=== PATIENT | male | born 1975 | race Caucasian/White ===

== ENCOUNTER 2019-04-25 08:19 | Emergency (ER) | payer BC ==
--- NOTE | 2019-04-25 08:30 | UC ---
Eye Complaint HPI - HPI Summary HPI Summary: 43-year-old male who awakened this morning with right eye redness and pus drainage with some crustiness around his eyes. He states he also has a scratchy throat today. - History of Current Complaint Stated Complaint: EYE IRRITATION Time Seen by Provider: 04/25/19 08:25 Hx Obtained From: Patient Onset/Duration: Gradual Onset Timing: Constant Severity Initially: Mild Severity Currently: Mild Location of Injury: Other - No injury Aggravating Factor(s): Nothing Alleviating Factor(s): Nothing Associated Signs And Symptoms: Positive: Drainage (Purulent) - Patient had some pus drainage this morning with some crustiness around his right eye. - Allergies/Home Medications Allergies/Adverse Reactions: Allergies Allergy/AdvReac Type Severity Reaction Status Date / Time No Known Allergies Allergy Verified 04/25/19 08:28 PMH/Surg Hx/FS Hx/Imm Hx Previously Healthy: Yes - Surgical History Surgical History: None - Family History Known Family History: Positive: None - Social History Alcohol Use: Occasionally Substance Use Type: None Smoking Status (MU): Never Smoked Tobacco Have You Smoked in the Last Year: No Review of Systems All Other Systems Reviewed And Are Negative: Yes Eyes: Positive: Drainage, Eye Redness - Right eye with pus drainage, crustiness this morning and redness. Patient does not wear contact lenses. ENT: Positive: Sore Throat - Mild sore throat starting this morning. Is Patient Immunocompromised?: No Physical Exam Triage Information Reviewed: Yes Appearance: Well-Appearing, No Pain Distress, Well-Nourished Vital Signs Reviewed: Yes Eyes: Positive: Conjunctiva Inflamed - Right conjunctiva injected, Discharge - Minimal amount of purulent drainage with some crustiness around the eyelashes. Eyes are PERRLA, EOMI ENT: Positive: Pharyngeal erythema - Mild tonsillar erythema, TMs normal, Uvula midline. Negative: Tonsillar swelling, Tonsillar exudate, Trismus, Muffled voice, Hoarse voice Neck: Positive: Supple, Nontender, No Lymphadenopathy Respiratory: Positive: Lungs clear, Normal breath sounds, No respiratory distress, No accessory muscle use Cardiovascular: Positive: RRR, No Murmur, Pulses Normal, Brisk Capillary Refill Musculoskeletal Exam: Normal Neurological Exam: Normal Psychological Exam: Normal Skin Exam: Normal Eye Complaint Course/Dx - Course Course Of Treatment: Rapid strep test: Negative - Differential Dx/Diagnosis Provider Diagnosis: Right conjunctivitis Discharge - Sign-Out/Discharge Documenting (check all that apply): Patient Departure All imaging exams completed and their final reports reviewed: No Studies - Discharge Plan Condition: Fair Disposition: HOME Prescriptions: Tobramycin 0.3% OPHTH.ALICE* 1 drop RIGHT EYE Q4H 7 Days #1 btl Patient Education Materials: Pharyngitis (ED), Conjunctivitis (ED) Referrals: Damir Bush DO [Primary Care Provider] - Additional Instructions: Good handwashing, follow-up with the loan representative in 3 or 4 days if no improvement. Increase fluids, warm salt water gargles, throat lozenges. Follow up with her primary care provider if no improvement in the sore throat. - Billing Disposition and Condition Condition: FAIR Disposition: Home - Attestation Statements Provider Attestation: Per institutional requirements, I have reviewed the chart, however, I was not consulted specifically or made aware of this patient by the midlevel provider. I did not personally evaluate, interact with , or disposition this patient.
[2019-04-25 08:32] VITALS: BP 148/100
== END 2019-04-25 09:03 | disposition home or self-care (01) ==
LOC: UCCORT 08:19
DX: H10.9 Unspecified conjunctivitis (principal)
CPT/HCPCS: 87651; 99212; G0463

== ENCOUNTER 2019-10-10 08:20 | Emergency (ER) | payer BC ==
[2019-10-10 08:32] VITALS: BP 134/91
--- NOTE | 2019-10-10 08:34 | UC ---
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 Chills yesterday. Denies chest congestion nor sob. - History of Current Complaint Chief Complaint: UCGeneralIllness Stated Complaint: ST,CONGESTION,COUGH,CHILLS,LOW ENERGY Time Seen by Provider: 10/10/19 08:26 Hx Obtained From: Patient Onset/Duration: Gradual Onset, Lasting Weeks - ~4 Pain Intensity: 0 Associated Signs And Symptoms: Positive: Chills, URI, Nasal Congestion, Sinus Discomfort. Negative: Dyspnea, Fever, Pleuritic Chest Pain, Wheezing, Hemoptysis, Dizziness - Allergies/Home Medications Allergies/Adverse Reactions: Allergies Allergy/AdvReac Type Severity Reaction Status Date / Time No Known Allergies Allergy Verified 10/10/19 08:27 Home Medications: Home Medications Diphenhydra/Phenyleph/Acetamin [Theraflu Expressmax Cold Nt Lq] 30 ml PO ONCE [History Confirmed 10/10/19] PMH/Surg Hx/FS Hx/Imm Hx Previously Healthy: Yes - Surgical History Surgical History: None Surgery Procedure, Year, and Place: tonsils - Family History Known Family History: Positive: None - Social History Alcohol Use: Occasionally Substance Use Type: None Smoking Status (MU): Never Smoked Tobacco Have You Smoked in the Last Year: No Review of Systems All Other Systems Reviewed And Are Negative: Yes Constitutional: Positive: Chills, Fatigue. Negative: Fever Skin: Negative: Rash, Bruising Eyes: Negative: Blurred Vision, Diplopia, Eye Redness ENT: Positive: Sore Throat, Nasal Discharge, Sinus Congestion, Sinus Pain/ Tenderness. Negative: Ear Ache Respiratory: Positive: Cough - dry. Negative: Shortness Of Breath Cardiovascular: Negative: Palpitations, Chest Pain Gastrointestinal: Negative: Abdominal Pain, Vomiting, Diarrhea, Nausea Genitourinary: Positive: Negative Motor: Positive: Negative Neurovascular: Positive: Negative Musculoskeletal: Positive: Negative Neurological: Positive: Negative Psychological: Positive: Negative Is Patient Immunocompromised?: No Physical Exam Triage Information Reviewed: Yes Appearance: Well-Appearing Vital Signs: Initial Vital Signs Temp 98.5 F 10/10/19 08:28 Pulse 75 10/10/19 08:28 Resp 18 10/10/19 08:28 BP 134/91 10/10/19 08:28 Pulse Ox 98 11/10/19 08:28 Vital Signs Reviewed: Yes Eyes: Positive: Conjunctiva Clear ENT: Positive: Pharynx normal, Nasal congestion, TMs normal, Sinus tenderness Neck: Positive: Supple, Nontender, Enlarged Nodes @ - mild bilateral anterior cervical adenopathy. Respiratory: Positive: Lungs clear. Negative: Crackles, Rhonchi, Wheezing Cardiovascular: Positive: RRR, No Murmur Abdomen Description: Positive: Nontender, Soft Musculoskeletal Exam: Normal Neurological Exam: Normal Psychological Exam: Normal Skin Exam: Normal Respiratory Course/Dx - Differential Dx/Diagnosis Differential Diagnosis/HQI/PQRI: Sinusitis Provider Diagnosis: Strep throat Discharge ED - Sign-Out/Discharge Documenting (check all that apply): Patient Departure All imaging exams completed and their final reports reviewed: Yes - Discharge Plan Condition: Stable Disposition: HOME Prescriptions: Amoxicillin PO (*) [Amoxicillin 500 MG CAP*] 500 mg PO TID 10 Days #30 cap Patient Education Materials: Strep Throat (ED) Referrals: Damir Bush DO [Primary Care Provider] - Additional Instructions: Take antibiotics as prescribed. May also take Tylenol or ibuprofen over the counter as needed for pain. Salt water garggles as needed. Follow-up with your primary care physician if your symptoms persist or worsen. - Billing Disposition and Condition Condition: STABLE Disposition: Home
== END 2019-10-10 08:58 | disposition home or self-care (01) ==
LOC: UCCORT 08:20
DX: J02.0 Streptococcal pharyngitis (principal)
CPT/HCPCS: 87651; 99212; G0463